=== PATIENT | male | born 1970 | race African-American/Black ===

== ENCOUNTER 2021-02-14 00:11 | Emergency (ER) | payer MEDICAID ==
[~2021-02-14] VITALS: Ht 193 cm; Wt 120.7 kg
[2021-02-14 00:36] LABS: HEMATOCRIT 26.7 % (36.7-47.1); MEAN CORPUSCULAR VOLUME 89.8 fL (73.0-96.2); PLATELET COUNT (AUTO) 149 K/uL (152-348)
--- NOTE | 2021-02-14 00:38 | NUR ---
Patient BIB [facility] for c/o generalized weakness. A/Ox3. Speech is clear, speaks in complete sentences. No respiratory distress noted, no cardiovascular distress noted, patient denies cp, and/or palpitations. Denies any GI, or distresses at this time. Patient in bed at lowest position, sr upx2, call light within reach. Fall and safety precautions implemented per protocol.
[2021-02-14 00:45] LABS: CREATININE 1.4 mg/dL (0.6-1.3); POTASSIUM 4.6 mmol/L (3.5-5.1)
[2021-02-14 00:51] LABS: BILIRUBIN,DIRECT 2.4 mg/dL (0.0-0.2); BILIRUBIN,TOTAL 3.2 mg/dL (0.2-1.0); TOTAL PROTEIN, SERUM 6.5 g/dL (6.4-8.2)
[2021-02-14 01:28] LABS: IRON, SERUM 248 ug/dL (50-175)
[2021-02-14 02:16] LABS: BAND % (MANUAL) 4 % (0-10); EOSINOPHILS % (MANUAL) 2 % (0-8); LYMPHOCYTES % (MANUAL) 17 % (20-40); METAMYELOCYTES % 1 % (0-1); MONOCYTES % (MANUAL) 5 % (2-10); NEUTROPHILS % (MANUAL) 71 % (42-75)
--- NOTE | 2021-02-14 02:36 | NUR ---
US tech at bedside for scan.
--- NOTE | 2021-02-14 02:47 | NUR ---
Bunny called, Lactic is 10.3. Dr. Hernandez notified.
[2021-02-14] MEDS ORDERED: IV NS 1000 ML 1,000 ML IV ONE ×2 (03:00)
--- NOTE | 2021-02-14 03:08 | NUR ---
Patient adamant in wanting to go home despite of current status of health. Patient requesting to speak with ERMD at this time. ERMDoug made aware.
[2021-02-14] MEDS ORDERED: insulin (03:25)
--- NOTE | 2021-02-14 04:11 | NUR ---
Patient does not wish to proceed with medical care recommended by Dr. Hernandez. Patient given information related to possible complications, up to and including , which could occur as a result of leaving the hospital at this time. Patient verbalizes understanding of risks involved due to leaving against medical advice. Patient has signed AMA form. Patient A/Ox4 and is fully cognicent of his current condition but still is adamant in returning home. Patient is able to ambulate with steady gait. All belongings returned to patient prior to departure. Denies any homelessness states he has a home to go home to and will request cab to assist him in getting to destination.
[2021-02-14 05:09] VITALS: BP 129/66
[2021-02-16 05:06] LABS: HAPTOGLOBIN <10 mg/dL (29-370)
== END 2021-02-14 04:12 | disposition left against medical advice (07) ==
LOC: ER 00:19
DX: E11.649 Type 2 diabetes mellitus with hypoglycemia without coma (principal); K76.0 Fatty (change of) liver, not elsewhere classified; E87.2 Acidosis; D64.9 Anemia, unspecified; I10 Essential (primary) hypertension; R74.01 Elevation of levels of liver transaminase levels; E55.9 Vitamin D deficiency, unspecified; R94.31 Abnormal electrocardiogram [ECG] [EKG]
CPT/HCPCS: 36415; 70030-TC; 82525; 83010; 83550; 83605; 83735; 84207; 85025; 87040; A4663; J7040